=== PATIENT | male | born 1955 | race African-American/Black ===

== ENCOUNTER → 2016-10-27 | Outpatient (CLI) | payer OTHER ==
--- NOTE | 2016-10-27 12:07 | P.PN ---
Progress Note - Text Patient returns for followup for chronic back and hip pain without significant radiation to lower extremities and tailbone pain; patient recently underwent total hip arthroplasty on the left side; patient got Morris 10/[address] Sweeney and says it is helping significantly with postoperative pain. Patient has undergone many types of spinal injections in the past including RFA, SIJ injections, and LESIs, none of which have provided more than 2-3 weeks' relief apiece. Patient continues on Percocet and Neurontin medications for pain with good relief, but still continues to complain of coccygeal pain. Patient denies adverse drug effects from medications. Today, pt denies new-onset weakness, bowel/bladder incontinence, or any other signs or symptoms of cauda equina syndrome. There are no signs of acute intoxication, and no indications of medication diversion or overuse. In addition to above, 13-point review of systems is also negative for chest pain , shortness of breath, changes in vision, changes in hearing, new onset weakness , abdominal pain, diarrhea, extreme fatigue, malaise, fever, skin changes, homicidal or suicidal ideation, or bowel or bladder incontinence. Vital Signs: Reviewed in EMR Gen: WDWN, AAOx3, NAD HEENT: NCAT, EOMI, hearing grossly normal Pulm: resp unlabored Abd: soft, NT, ND Neck: supple, trachea midline ROM in flexion lumbar spine: reduced ROM in extension lumbar spine: reduced Lumbar paravertebral tenderness: ++, worst over coccygeal area Facet loading: ++ SI joint tenderness: +bilateral David's test: + bilateral Straight leg raise: neg Tender to deep palpation over coccyx, worst right side Well-healing scar left hip, C/D/I Neuro: CN II-XII grossly intact, muscle strength lower extremities PRESERVED Imaging: Reviewed in EMR Assessment: 1. coccygodynia 2. lumbar spondylosis without myelopathy 3. chronic pain syndrome Plan: 1. Explanation: Opioid and psychological risk scores were reviewed. Diagnoses , prognoses, and multiple treatment options including but not limited to physical therapy, interventional therapies, adjuvant medical therapies, narcotic medication therapies, and surgery were discussed with the patient and all questions were answered to the patient's satisfaction. 2. Opioid agreement: Patient has previously signed narcotic agreement, and was orally counseled to not overuse, abuse, divert, or cell medications, and to take them as prescribed by only 1 healthcare provider. The patient was also counseled to store opioid medications in a safe and preferably locked location. Patient was also counseled against driving while using narcotic medications and also to not use alcohol or any illicit or recreational drugs. The patient verbalized understanding that lack of compliance with any of the above and likely result in failure to renew narcotic prescriptions, possible discharge from the clinic, and possible legal ramifications thereafter if indicated. 3. Counseling: The patient was counseled extensively on BODY MASS INDEX, EXERCISE. Specifically, the patient was instructed regarding the importance of smoking cessation, obesity, and exercise in the context of both chronic pain and overall health. 4. Procedures: patient wants ganglion of impar block, will discuss at next visit 5. Consultations: None 6. Investigations: UDS today 7. Medications: Morris 10/325 #120 x 2 months (changed from Percocet 5/325 #240) , Neurontin x 2 months 8. Disposition: f/u for re-eval 8 weeks PQRS measures: 1-Patient's medications are documented in the chart. 2-Tobacco use is negative, counseling NOT given 3-Patient has not had a pneumococcal vaccine. 4-Advanced care planning discussed, patient unable to give. 5-Opioid contract signed with the patient. 6-Pain positive, follow-up visit or procedure scheduled 7-Patient's blood pressure measured and documented, and within normal limits. 8-Patient's weight was measured, and body mass index ABOVE the normal limits, and counseling was done. Patient instructed to follow up with PCP. 9-Patient WAS NOT identified as an unhealthy alcohol user.
[2016-10-27 12:10] VITALS: BP 114/74; PULSE 86; RESP 16; TEMP 98
== END | disposition home or self-care (01) ==
LOC: PNWHC3 11:09
PROVIDERS: ATTEND Anesthesiology
DX: M53.3 Sacrococcygeal disorders, not elsewhere classified (principal); M47.816 Spondylosis without myelopathy or radiculopathy, lumbar region; G89.4 Chronic pain syndrome; Z98.890 Other specified postprocedural states; Z79.891 Long term (current) use of opiate analgesic
CPT/HCPCS: 80307 ×2; G0480; G0463; 80364; 99211

== ENCOUNTER → 2016-12-22 | Outpatient (CLI) | payer OTHER ==
[2016-12-22 12:06] VITALS: BP 153/92; PULSE 75; RESP 16; TEMP 98
--- NOTE | 2016-12-22 12:40 | P.PN ---
Progress Note - Text This is a 61-year-old male with history of coccydynia and recent left total hip replacement. The patient states that his tailbone pain starts after he sits down for half an hour to 45 minutes and becomes excruciating with no radiation to the lower extremities. Palpation used to be on Percocet 5 mg and he was taken 8 pills of that every day before his hip surgery. The patient was switched to [place] for postop pain but he states that [place] gives him too many side effects including severe constipation and memory problems. The patient requested to switch him back to Percocet. He is alert oriented 3 in no apparent distress he uses cane for ambulation he denies any suicidal thoughts. The patient understands the risk of being on opioids and for that I'm going to switch him back to Percocet but at much lower dose I will give him Percocet 5 mg up to 5 pills a day for now and hopefully can wean him further down in the future. I will schedule him to have ganglion impar block under fluoroscopic guidance in hope that if it does help him week and then we can further down on the Percocet. We will see the patient back in 4 weeks from now for reevaluation.
== END ==
LOC: PNWHC3 11:46
PROVIDERS: ATTEND Anesthesiology
DX: M53.3 Sacrococcygeal disorders, not elsewhere classified (principal); Z96.642 Presence of left artificial hip joint; Z79.891 Long term (current) use of opiate analgesic
CPT/HCPCS: 99211

== ENCOUNTER 2017-01-20 07:14 | Day surgery (SDC) | payer OTHER ==
[2017-01-15 16:10] VITALS: BMI 33.2
[2017-01-20 07:39] VITALS: RESP 16; TEMP 97.3
[2017-01-20] MEDS ORDERED: LIDOCAINE 1% 20 ML VIAL (10MG/ML) FOR IV START INTRADERMA ONE (07:44)
[2017-01-20] MEDS ORDERED: LACTATED RINGERS 1,000 ML IV SCH (07:45)
[2017-01-20] MEDS ORDERED: BUPIVACAINE (PF) 0.5% 30 ML VIAL ONE (08:15)
[2017-01-20] MEDS ORDERED: IOHEXOL 180 MG/ML 1 ML ML ONE (08:15)
[2017-01-20] MEDS ORDERED: MIDAZOLAM 2 MG/2 ML VIAL ONE (08:15)
[2017-01-20] MEDS ORDERED: TRIAMCINOLONE ACETONIDE 40 MG/ML 1 ML VIAL ONE (08:15)
[2017-01-20] MEDS ORDERED: fentaNYL (PF) 50 MCG/ML 2 ML AMP ONE (08:15)
[2017-01-20] MEDS ORDERED: IV FLUID CONTINUATION 1,000 ML IV ONE (08:47)
--- NOTE | 2017-01-20 08:52 | FL ---
EXAMINATION TYPE: FL guided pain mgmt statistic DATE OF EXAM: 01/20/2017 8:46 AM HISTORY: Flouroscopy time 51 seconds of fluoroscopy provided. IMPRESSION: 1. Fluoroscopy time.
[2017-01-20 09:05] VITALS: BP 134/83; PULSE 56
--- NOTE | 2017-01-20 09:25 | P.PCN ---
Date of Procedure: 01/20/17 Preoperative Diagnosis: Postoperative Diagnosis: Procedure(s) Performed: Implants: Surgeon: Marquez Lawson Pathology: none sent Condition: stable Disposition: PACU Indications for Procedure: Operative Findings: Description of Procedure: PREOP DIAGNOSIS: Coccydynia POSTOP DIAGNOSIS: same PROCEDURE: Ganglion impar block. ANESTHESIA: Local with 1% lidocaine; IV sedation with Versed and fentanyl. EBL: None. PROCEDURE INDICATION: The patient with coccydynia that has been unresponsive to more conservative measures. Patient does not use any blood thinners. PROCEDURE DESCRIPTION: The patient was seen and identified in the preoperative area. Risks, benefits, complications, and alternatives were discussed with the patient (including but not limited to incomplete pain relief, bleeding, infection, nerve damage, and allergies to medications), the patient agreed to proceed with the procedure and signed the consent after all questions were answered. Patient was taken to the OR and time out was completed to verify proper patient , position, laterality of pain, and allergies. Pt was placed in the prone position. IV was started. Vital signs remained stable throughout the procedure. Using crosstable lateral view, the sacrococcygeal joint was identified and localized with 1% lidocaine. A 22-gauge 3-1/2 inch spinal needle was inserted through the sacrococcygeal ligament and advanced to the anterior aspect of the joint guided by juanis-posterior and lateral fluoroscopy. Correct needle position was verified by injecting 2 ml of water soluble dye, Omnipaque 300, and observing a spread along the anterior side of the sacro-coccygeal ligament. After negative aspiration of CSF, blood, and no paresthesias, 10 mL of block solution containing 8 mL of 0.5%preservative-free bupivacaine and Kenalog 80 mg was injected. Needle was withdrawn intact. Skin was cleansed and bandages were applied. COMPLICATIONS: None. COMMENTS: DISPOSITION / PLANS: The patient was placed in a supine position and transferred to the recovery area in a stable condition for observation. Patient was discharged from the recovery room after meeting discharge criteria. Discharge instructions given to the patient by the staff. The patient was reexamined prior to discharge and there were no issues. The patient will schedule a repeat injection in 4-6 weeks.
== END 2017-01-20 09:37 | disposition home or self-care (01) ==
LOC: ORPAIN 07:14
PROVIDERS: ATTEND Anesthesiology
DX: M53.3 Sacrococcygeal disorders, not elsewhere classified (principal); Z79.891 Long term (current) use of opiate analgesic
CPT/HCPCS: 99152; 77002; 20605; J2250; J3301; Q9965; J3010; 64999

== ENCOUNTER 2017-02-16 09:53 | Day surgery (SDC) | payer OTHER ==
[2017-02-12 15:31] VITALS: BMI 33.2
[~2017-02-16 09:53] MED LIST: LACTATED RINGERS 1,000 ML IV SCH
[2017-02-16 10:14] VITALS: RESP 18; TEMP 98.1
[2017-02-16] MEDS ORDERED: LIDOCAINE 1% 20 ML VIAL (10MG/ML) FOR IV START INTRADERMA ONE (10:20)
[2017-02-16] MEDS ORDERED: fentaNYL (PF) 50 MCG/ML 2 ML AMP ONE (10:20)
[2017-02-16] MEDS ORDERED: DEXAMETHASONE SOD PHOS (MDV) 100 MG/10 ML VIAL ONE (10:20)
[2017-02-16] MEDS ORDERED: MIDAZOLAM 2 MG/2 ML VIAL ONE (10:20)
[2017-02-16] MEDS ORDERED: IOHEXOL 180 MG/ML 1 ML ML ONE (10:20)
[2017-02-16] MEDS ORDERED: BUPIVACAINE (PF) 0.5% 30 ML VIAL ONE (10:20)
[2017-02-16] MEDS ORDERED: IV FLUID CONTINUATION 1,000 ML IV ONE (10:49)
--- NOTE | 2017-02-16 10:53 | P.PCN ---
Date of Procedure: 02/16/17 Preoperative Diagnosis: Postoperative Diagnosis: Procedure(s) Performed: PREOPERATIVE DIAGNOSIS : 1-coccygodynia POSTOPERATIVE DIAGNOSIS: 1-coccygodynia PROCEDURE: Diagnostic= ganglion impar block under fluoroscopy guidance ANESTHESIA: Local with 1% lidocaine 3 ml ; IV sedation with Versed 3 mg and Fentanyl 150 mcg. EBL: Minimal COMPLICATION: None. IV FLUIDS: 100 mL of normal saline. 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 PROCEDURE DESCRIPTION: the patient was seen and identified in the preop holding area , risks and benefits and possible complications of the procedure and alternative were discussed with the patient, and the patient agreed to proceed with the procedure and signed the consent IV was started and vital signs monitored during the procedure and fluoroscopy was used to maximize the benefit and accuracy of the needle placement, and sedation was given to decrease patient anxiety, patient was taken to the procedure room and placed in prone position vital signs monitored in the back prepped with chlorhexidine X3 then under strict sterile technique using the lateral view , after local infiltration of skin and subcu tissuies with lidocaine 1% 3 mL , then 22-gauge Quincke-type needles , inserted through the sacrococcygeal ligament and advanced to the anterior aspect of the sacrococcygeal joint , the correct needle position was confirmd with injection of Omnipaque 180 mg per ml ,3 ml injected after negative aspiration , 8 showed no intravascular spread down the spread was anterior to the sacrococcygeal ligament , and after negative aspiration for heme and CSF and there was no paresthesia 8 mL of Marcaine 0.5% mixed with 20 mg of dexamethasone , At the end of the procedure and the needle removed and a bandage applied after the skin was cleaned the cleaning solution patient taken to recovery room in stable condition and monitors in the recovery room for 20-30 minutes and discharged home in stable condition after discharge criteria met and patient will follow up with the pain clinic in 2-4 weeks Implants: Indications for Procedure: Operative Findings: Description of Procedure:
--- NOTE | 2017-02-16 10:56 | FL ---
Fluoroscopy HISTORY: Pain 18 seconds fluoroscopy time supplied to the referring clinician. 2 intraoperative C-arm images docum ent the procedure. See dictated report from anesthesia.
[2017-02-16 11:06] VITALS: BP 106/59; PULSE 60
== END 2017-02-16 11:31 | disposition home or self-care (01) ==
LOC: ORPAIN 09:53
PROVIDERS: ATTEND Specialist
DX: G89.29 Other chronic pain (principal); M46.96 Unspecified inflammatory spondylopathy, lumbar region
CPT/HCPCS: 64999; J2250; Q9965; J3010; J1100

== ENCOUNTER → 2017-04-13 | Outpatient (CLI) | payer OTHER ==
[2017-04-13 12:19] VITALS: BP 126/81; PULSE 84; RESP 20; TEMP 98.1
--- NOTE | 2017-04-13 12:34 | P.PN ---
Progress Note - Text This is a 61-year-old gentleman with history of lower back pain due to lumbar spondylosis. He also had severe coccygeal pain last time I saw him and he had to ganglion impar injection since then which helped him significantly and right now he does not complain of any pain around the coccyx area. The patient still takes Percocet 5 mg 5 times a day for his lower back pain. He does not show any drug-seeking behavior. He does not look oversedated. He denies any suicidal or homicidal thoughts. At this time I will do the patient prescription for Percocet for 2 months and we 'll see him then for reevaluation. Of note the patient takes diclofenac at home once a day from his primary care physician.
== END ==
LOC: PNWHC3 11:54
PROVIDERS: ATTEND Anesthesiology
DX: M54.5 Low back pain (principal)
CPT/HCPCS: 99211

== ENCOUNTER → 2017-06-08 | Outpatient (CLI) | payer OTHER ==
[2017-06-08 14:26] VITALS: BP 131/81; PULSE 61; RESP 18; TEMP 98.3
--- NOTE | 2017-06-08 14:50 | P.PN ---
Progress Note - Text Progress Note Date: 06/08/17 his is a 61-year-old gentleman with history of lower back pain due to lumbar spondylosis. He also had severe coccygeal pain that responded favorably to ganglion impar injection . The patient still takes Percocet 5 mg 5 times a day for his lower back pain. He does not show any drug-seeking behavior. He does not look oversedated. He denies any suicidal or homicidal thoughts. The patient asked me to increase his dose of Percocet since he used to take 240 pills per month however I told him we'll going to add naproxen 250 mg once a day as needed for pain instead of going up on the Percocet. The patient does have history of hypertension and we'll have to watch his blood pressure if it is getting worse we might need to stop using naproxen. At this time I will write a prescription for Percocet for 1 month and I will schedule him to have ganglion impar injection as soon as possible for his coccyx pain. Of note the patient stopped using diclofenac that he used to get from his primary care physician.
== END ==
LOC: PNWHC3 13:49
PROVIDERS: ATTEND Anesthesiology
DX: M47.816 Spondylosis without myelopathy or radiculopathy, lumbar region (principal); Z79.899 Other long term (current) drug therapy
CPT/HCPCS: 99211

== ENCOUNTER → 2017-07-28 | Outpatient (CLI) | payer OTHER ==
[2017-07-28 14:01] VITALS: BP 176/78; PULSE 72; TEMP 98.8
--- NOTE | 2017-07-28 14:42 | P.PN ---
Progress Note - Text Progress Note Date: 07/28/17 Patient returns for followup for chronic back and hip pain without significant radiation to lower extremities and tailbone pain. Patient underwent ganglion of impar block with improvement of pain from 7/10 down to 2/10 but with numbness in his penis and testicles for 1-2 days that did resolve. Patient continues on Percocet and Neurontin medications for pain with some relief, but still continues to complain of coccygeal pain. Patient denies adverse drug effects from medications. Today, pt denies new-onset weakness, bowel/bladder incontinence, or any other signs or symptoms of cauda equina syndrome. There are no signs of acute intoxication, and no indications of medication diversion or overuse. In addition to above, 13-point review of systems is also negative for chest pain , shortness of breath, changes in vision, changes in hearing, new onset weakness , abdominal pain, diarrhea, extreme fatigue, malaise, fever, skin changes, homicidal or suicidal ideation, or bowel or bladder incontinence. Vital Signs: Reviewed in EMR Gen: WDWN, AAOx3, NAD HEENT: NCAT, EOMI, hearing grossly normal Pulm: resp unlabored Abd: soft, NT, ND Neck: supple, trachea midline ROM in flexion lumbar spine: reduced ROM in extension lumbar spine: reduced Lumbar paravertebral tenderness: ++, worst over coccygeal area Facet loading: ++ SI joint tenderness: + bilateral David's test: + bilateral Straight leg raise: neg Tender to deep palpation over coccyx, worst right side Well-healing scar left hip, C/D/I Neuro: CN II-XII grossly intact, muscle strength lower extremities PRESERVED Imaging: Reviewed in EMR Assessment: 1. coccygodynia 2. lumbar spondylosis without myelopathy 3. chronic pain syndrome Plan: 1. Explanation: Opioid and psychological risk scores were reviewed. Diagnoses , prognoses, and multiple treatment options including but not limited to physical therapy, interventional therapies, adjuvant medical therapies, narcotic medication therapies, and surgery were discussed with the patient and all questions were answered to the patient's satisfaction. 2. Opioid agreement: Patient has previously signed narcotic agreement, and was orally counseled to not overuse, abuse, divert, or cell medications, and to take them as prescribed by only 1 healthcare provider. The patient was also counseled to store opioid medications in a safe and preferably locked location. Patient was also counseled against driving while using narcotic medications and also to not use alcohol or any illicit or recreational drugs. The patient verbalized understanding that lack of compliance with any of the above and likely result in failure to renew narcotic prescriptions, possible discharge from the clinic, and possible legal ramifications thereafter if indicated. 3. Counseling: The patient was counseled extensively on BODY MASS INDEX, EXERCISE. Specifically, the patient was instructed regarding the importance of smoking cessation, obesity, and exercise in the context of both chronic pain and overall health. 4. Procedures: patient wants to repeat ganglion of impar block in 2018, consider using particulate steroid at that time 5. Consultations: None 6. Investigations: UDS today 7. Medications: Percocet 5/325 #150 with one refill, Naproxen 250 mg #60 with one refill 8. Disposition: f/u for re-eval 8 weeks. Will discuss repeating ganglion of impar block at that time and will also consider changing patient to oxycodone 10 mg #90 (without any acetaminophen, which is more likely to be covered by his insurance). PQRS measures: 1-Patient's medications are documented in the chart. 2-Tobacco use is negative, counseling NOT given 3-Patient has not had a pneumococcal vaccine. 4-Advanced care planning discussed, patient unable to give. 5-Opioid contract signed with the patient. 6-Pain positive, follow-up visit or procedure scheduled 7-Patient's blood pressure measured and documented, and within normal limits. 8-Patient's weight was measured, and body mass index ABOVE the normal limits, and counseling was done. Patient instructed to follow up with PCP. 9-Patient WAS NOT identified as an unhealthy alcohol user.
== END | disposition home or self-care (01) ==
LOC: PNWHC3 13:42
PROVIDERS: ATTEND Anesthesiology
DX: M47.816 Spondylosis without myelopathy or radiculopathy, lumbar region (principal); M53.3 Sacrococcygeal disorders, not elsewhere classified; G89.4 Chronic pain syndrome; Z79.891 Long term (current) use of opiate analgesic; Z79.899 Other long term (current) drug therapy
CPT/HCPCS: 80307; 80345; 80356; 80364; 99211

== ENCOUNTER → 2017-09-22 | Outpatient (CLI) | payer OTHER ==
[2017-09-22 14:24] VITALS: BP 153/85; PULSE 67; RESP 18
--- NOTE | 2017-09-22 15:03 | P.PN ---
Progress Note - Text Progress Note Date: 09/22/17 Patient returns for followup for chronic back and hip pain without significant radiation to lower extremities and tailbone pain. In 2017, patient underwent ganglion of impar block with improvement of pain from 7/10 down to 2/10 but with numbness in his penis and testicles for 1-2 days that did resolve. Patient continues on Percocet and Neurontin medications for pain with overall decreasing pain relief, but still continues to complain of coccygeal pain. Patient denies adverse drug effects from medications. Today, pt denies new- onset weakness, bowel/bladder incontinence, or any other signs or symptoms of cauda equina syndrome. There are no signs of acute intoxication, and no indications of medication diversion or overuse. In addition to above, 13-point review of systems is also negative for chest pain , shortness of breath, changes in vision, changes in hearing, new onset weakness , abdominal pain, diarrhea, extreme fatigue, malaise, fever, skin changes, homicidal or suicidal ideation, or bowel or bladder incontinence. Vital Signs: Reviewed in EMR Gen: WDWN, AAOx3, NAD HEENT: NCAT, EOMI, hearing grossly normal Pulm: resp unlabored Abd: soft, NT, ND Neck: supple, trachea midline ROM in flexion lumbar spine: reduced ROM in extension lumbar spine: reduced Lumbar paravertebral tenderness: ++, worst over coccygeal area Facet loading: ++ SI joint tenderness: + bilateral David's test: + bilateral Straight leg raise: neg Tender to deep palpation over coccyx, R > L Neuro: CN II-XII grossly intact, muscle strength lower extremities PRESERVED Imaging: Reviewed in EMR Assessment: 1. coccygodynia 2. lumbar spondylosis without myelopathy 3. chronic pain syndrome Plan: 1. Explanation: Opioid and psychological risk scores were reviewed. Diagnoses , prognoses, and multiple treatment options including but not limited to physical therapy, interventional therapies, adjuvant medical therapies, narcotic medication therapies, and surgery were discussed with the patient and all questions were answered to the patient's satisfaction. 2. Opioid agreement: Patient has previously signed narcotic agreement, and was orally counseled to not overuse, abuse, divert, or cell medications, and to take them as prescribed by only 1 healthcare provider. The patient was also counseled to store opioid medications in a safe and preferably locked location. Patient was also counseled against driving while using narcotic medications and also to not use alcohol or any illicit or recreational drugs. The patient verbalized understanding that lack of compliance with any of the above and likely result in failure to renew narcotic prescriptions, possible discharge from the clinic, and possible legal ramifications thereafter if indicated. 3. Counseling: The patient was counseled extensively on BODY MASS INDEX, EXERCISE. Specifically, the patient was instructed regarding the importance of smoking cessation, obesity, and exercise in the context of both chronic pain and overall health. 4. Procedures: patient wants to repeat ganglion of impar block in 2018, consider using particulate steroid at that time 5. Consultations: None 6. Investigations: UDS appropriate from 07/28/17 7. Medications: start oxycodone 10 mg #90 with no refill as patient has had poor pain relief with Percocet 8. Disposition: f/u for re-eval 4 weeks. Will discuss repeating ganglion of impar block at that time as well. PQRS measures: 1-Patient's medications are documented in the chart. 2-Tobacco use is negative, counseling NOT given 3-Patient has not had a pneumococcal vaccine. 4-Advanced care planning discussed, patient unable to give. 5-Opioid contract signed with the patient. 6-Pain positive, follow-up visit or procedure scheduled 7-Patient's blood pressure measured and documented, and within normal limits. 8-Patient's weight was measured, and body mass index ABOVE the normal limits, and counseling was done. Patient instructed to follow up with PCP. 9-Patient WAS NOT identified as an unhealthy alcohol user.
== END | disposition home or self-care (01) ==
LOC: PNWHC3 13:10
PROVIDERS: ATTEND Anesthesiology
DX: G89.4 Chronic pain syndrome (principal); M54.9 Dorsalgia, unspecified; M53.3 Sacrococcygeal disorders, not elsewhere classified; M47.816 Spondylosis without myelopathy or radiculopathy, lumbar region; Z91.19 Patient's noncompliance with other medical treatment and regimen; Z79.891 Long term (current) use of opiate analgesic; Z79.899 Other long term (current) drug therapy
CPT/HCPCS: 99211

== ENCOUNTER → 2017-10-27 | Outpatient (CLI) | payer OTHER ==
[2017-10-27 14:18] VITALS: BP 132/85; PULSE 87; RESP 16
--- NOTE | 2017-10-27 14:41 | P.PN ---
Progress Note - Text Progress Note Date: 10/27/17 Patient returns for followup for chronic back and hip pain without significant radiation to lower extremities and tailbone pain. In 2017, patient underwent ganglion of impar block with improvement of pain from 7/10 down to 2/10 but with numbness in his penis and testicles for 1-2 days that did resolve. Patient continues on oxycodone (started last visit, changed from Percocet) and Neurontin medications for pain with overall decreasing pain relief, and still continues to complain of coccygeal pain. Patient denies adverse drug effects from medications. Today, pt denies new-onset weakness, bowel/bladder incontinence, or any other signs or symptoms of cauda equina syndrome. There are no signs of acute intoxication, and no indications of medication diversion or overuse. In addition to above, 13-point review of systems is also negative for chest pain , shortness of breath, changes in vision, changes in hearing, new onset weakness , abdominal pain, diarrhea, extreme fatigue, malaise, fever, skin changes, homicidal or suicidal ideation, or bowel or bladder incontinence. Vital Signs: Reviewed in EMR Gen: WDWN, AAOx3, NAD HEENT: NCAT, EOMI, hearing grossly normal Pulm: resp unlabored Abd: soft, NT, ND Neck: supple, trachea midline ROM in flexion lumbar spine: reduced ROM in extension lumbar spine: reduced Lumbar paravertebral tenderness: ++, worst over coccygeal area Facet loading: ++ SI joint tenderness: + bilateral David's test: + bilateral Straight leg raise: neg Tender to deep palpation over coccyx, R > L Neuro: CN II-XII grossly intact, muscle strength lower extremities PRESERVED Imaging: Reviewed in EMR Assessment: 1. coccygodynia 2. lumbar spondylosis without myelopathy 3. chronic pain syndrome Plan: 1. Explanation: Opioid and psychological risk scores were reviewed. Diagnoses , prognoses, and multiple treatment options including but not limited to physical therapy, interventional therapies, adjuvant medical therapies, narcotic medication therapies, and surgery were discussed with the patient and all questions were answered to the patient's satisfaction. 2. Opioid agreement: Patient has previously signed narcotic agreement, and was orally counseled to not overuse, abuse, divert, or cell medications, and to take them as prescribed by only 1 healthcare provider. The patient was also counseled to store opioid medications in a safe and preferably locked location. Patient was also counseled against driving while using narcotic medications and also to not use alcohol or any illicit or recreational drugs. The patient verbalized understanding that lack of compliance with any of the above and likely result in failure to renew narcotic prescriptions, possible discharge from the clinic, and possible legal ramifications thereafter if indicated. 3. Counseling: The patient was counseled extensively on BODY MASS INDEX, EXERCISE. Specifically, the patient was instructed regarding the importance of smoking cessation, obesity, and exercise in the context of both chronic pain and overall health. 4. Procedures: ganglion of impar block (with particulate steroid) 5. Consultations: None 6. Investigations: UDS appropriate from 07/28/17 7. Medications: oxycodone 10 mg #90 with one refill (e-prescribed) 8. Disposition: f/u for procedure as scheduled PQRS measures: 1-Patient's medications are documented in the chart. 2-Tobacco use is negative, counseling NOT given 3-Patient has not had a pneumococcal vaccine. 4-Advanced care planning discussed, patient unable to give. 5-Opioid contract signed with the patient. 6-Pain positive, follow-up visit or procedure scheduled 7-Patient's blood pressure measured and documented, and within normal limits. 8-Patient's weight was measured, and body mass index ABOVE the normal limits, and counseling was done. Patient instructed to follow up with PCP. 9-Patient WAS NOT identified as an unhealthy alcohol user.
== END | disposition home or self-care (01) ==
LOC: PNWHC3 13:55
PROVIDERS: ATTEND Anesthesiology
DX: G89.4 Chronic pain syndrome (principal); M47.816 Spondylosis without myelopathy or radiculopathy, lumbar region; M53.3 Sacrococcygeal disorders, not elsewhere classified; Z79.899 Other long term (current) drug therapy
CPT/HCPCS: 99211

== ENCOUNTER 2017-11-24 09:48 | Day surgery (SDC) | payer OTHER ==
[2017-11-24] MEDS ORDERED: LACTATED RINGERS 1,000 ML IV SCH (10:00)
[2017-11-24 10:57] VITALS: RESP 18; TEMP 98.2
[2017-11-24] MEDS ORDERED: LIDOCAINE 1% 20 ML VIAL (10MG/ML) FOR IV START INTRADERMA ONE (11:03)
[2017-11-24] MEDS ORDERED: IOPAMIDOL M200 10 ML VIAL ONE (11:12)
--- NOTE | 2017-11-24 11:29 | P.PCN ---
Date of Procedure: 11/24/17 Surgeon: Marquez Lawson Pathology: none sent Condition: stable Disposition: PACU Description of Procedure: PREOP DIAGNOSIS: Coccydynia POSTOP DIAGNOSIS: same PROCEDURE: Ganglion impar block. ANESTHESIA: Local with 1% lidocaine; IV sedation with Versed and fentanyl. EBL: None. PROCEDURE INDICATION: The patient with coccydynia that has been unresponsive to more conservative measures and has had good relief from ganglion of impar blocks in the past. Patient does not use any blood thinners. PROCEDURE DESCRIPTION: The patient was seen and identified in the preoperative area. Risks, benefits, complications, and alternatives were discussed with the patient (including but not limited to incomplete pain relief, bleeding, infection, nerve damage, and allergies to medications), the patient agreed to proceed with the procedure and signed the consent after all questions were answered. Patient was taken to the OR and time out was completed to verify proper patient , position, laterality of pain, and allergies. Pt was placed in the prone position. IV was started. Vital signs remained stable throughout the procedure. Using crosstable lateral view, the sacrococcygeal joint was identified and localized with 1% lidocaine. A 22-gauge 3-1/2 inch spinal needle was inserted through the sacrococcygeal ligament and advanced to the anterior aspect of the joint guided by juanis-posterior and lateral fluoroscopy. Correct needle position was verified by injecting 2 ml of water soluble dye, Isovue-200, and observing a spread along the anterior side of the sacro-coccygeal ligament. After negative aspiration of CSF, blood, and no paresthesias, 10 mL of block solution containing 8 mL of 0.5% preservative-free bupivacaine and Kenalog 80 mg was injected. Needle was withdrawn intact. Skin was cleansed and bandages were applied. COMPLICATIONS: None. COMMENTS: DISPOSITION / PLANS: The patient was placed in a supine position and transferred to the recovery area in a stable condition for observation. Patient was discharged from the recovery room after meeting discharge criteria. Discharge instructions given to the patient by the staff. The patient was reexamined prior to discharge and there were no issues. The patient will follow up in the clinic in approximately 3-4 weeks.
[2017-11-24] MEDS ORDERED: IV FLUID CONTINUATION 1,000 ML IV ONE (11:36)
[2017-11-24 11:51] VITALS: BP 118/67; PULSE 58
--- NOTE | 2017-11-24 18:38 | FL ---
Fluoroscopy HISTORY: Pain 24 seconds fluoroscopy time supplied to the referring clinician. 3 intraoperative C-arm images docum ent the procedure. See dictated report from anesthesia.
== END 2017-11-24 12:11 | disposition home or self-care (01) ==
LOC: ORPAIN 09:48
PROVIDERS: ATTEND Anesthesiology
DX: G89.4 Chronic pain syndrome (principal); M53.3 Sacrococcygeal disorders, not elsewhere classified; M47.816 Spondylosis without myelopathy or radiculopathy, lumbar region; I10 Essential (primary) hypertension; Z79.891 Long term (current) use of opiate analgesic; Z79.899 Other long term (current) drug therapy
CPT/HCPCS: 64999; J2250; J3301; J3010; Q9966; 99152

== ENCOUNTER → 2017-12-22 | Outpatient (CLI) | payer OTHER ==
[2017-12-22 12:35] VITALS: BP 130/85; PULSE 66; RESP 20
--- NOTE | 2017-12-22 13:02 | P.PN ---
Progress Note - Text Progress Note Date: 12/22/17 Progress Note - Text Progress Note Date: 12/22/2017 Patient returns for followup for chronic back, hip pain, tailbone pain without radiation into the genitals. Patient is status post ganglion impar block one month ago and reports 80% relief. Patient however still has complaints of low- back pain. Patient is status post a left total hip arthroplasty and is recovering well, however still has radiating pain from his low back to his buttock into his left calf. Patient has had multiple epidural injections in the past at other clinics, but cannot recall ever getting a transforaminal epidural injection. I discussed with him the risk benefits of doing an S1 foramen steroid injection, as a therapeutic as well as a diagnostic tool. Patient continues on oxycodone and Neurontin medications for pain with overall decreasing pain relief, and still continues to complain of coccygeal pain. Today VAS is 5 out of 10 with medication. Patient denies adverse drug effects from medications. Today, pt denies new-onset weakness, bowel/bladder incontinence, or any other signs or symptoms of cauda equina syndrome. There are no signs of acute intoxication, and no indications of medication diversion or overuse. I reviewed patient's MRI findings with him this visit, spent 20 minutes discussing diagnosis and potential therapeutic options. I discussed with him the necessity of decreasing narcotic intake, how is likely not a quality surgical candidate given the severity of his low back degenerative disc disease. We discussed interventions, and patient wishes to proceed. In addition to above, 13-point review of systems is also negative for chest pain , shortness of breath, changes in vision, changes in hearing, new onset weakness , abdominal pain, diarrhea, extreme fatigue, malaise, fever, skin changes, homicidal or suicidal ideation, or bowel or bladder incontinence. Vital Signs: Reviewed in EMR Gen: WDWN, AAOx3, NAD HEENT: NCAT, EOMI, hearing grossly normal Pulm: resp unlabored Abd: soft, NT, ND Neck: supple, trachea midline ROM in flexion lumbar spine: reduced ROM in extension lumbar spine: reduced Lumbar paravertebral tenderness: ++ Facet loading: ++ SI joint tenderness: + bilateral David's test: + bilateral Straight leg raise: Positive at 30 left leg with reproducible S1 pain Tender to deep palpation over coccyx, R > L Neuro: CN II-XII grossly intact, muscle strength lower extremities PRESERVED Imaging: Reviewed in EMR Assessment: 1. Coccygodynia 2. Lumbar radiculopathy 3. Lumbar degenerative disc disease 4. lumbar spondylosis without myelopathy 5. chronic pain syndrome 6. Opiate dependency Plan: 1. Explanation: Opioid and psychological risk scores were reviewed. Diagnoses , prognoses, and multiple treatment options including but not limited to physical therapy, interventional therapies, adjuvant medical therapies, narcotic medication therapies, and surgery were discussed with the patient and all questions were answered to the patient's satisfaction. 2. Opioid agreement: Patient has previously signed narcotic agreement, and was orally counseled to not overuse, abuse, divert, or cell medications, and to take them as prescribed by only 1 healthcare provider. The patient was also counseled to store opioid medications in a safe and preferably locked location. Patient was also counseled against driving while using narcotic medications and also to not use alcohol or any illicit or recreational drugs. The patient verbalized understanding that lack of compliance with any of the above and likely result in failure to renew narcotic prescriptions, possible discharge from the clinic, and possible legal ramifications thereafter if indicated. 3. Counseling: The patient was counseled extensively on BODY MASS INDEX, EXERCISE. Specifically, the patient was instructed regarding the importance of smoking cessation, obesity, and exercise in the context of both chronic pain and overall health. 4. Procedures: Left S1 foraminal steroid injection 5. Consultations: None 6. Investigations Will repeat UDS today, maps reviewed and appropriate 7. Medications: oxycodone 10 mg #90 with one refill 8. Disposition: Left S1 foraminal steroid injection in 6 weeks PQRS measures: 1-Patient's medications are documented in the chart. 2-Tobacco use is negative, counseling NOT given 3-Patient has not had a pneumococcal vaccine. 4-Advanced care planning discussed, patient unable to give. 5-Opioid contract signed with the patient. 6-Pain positive, follow-up visit or procedure scheduled 7-Patient's blood pressure measured and documented, and within normal limits. 8-Patient's weight was measured, and body mass index ABOVE the normal limits, and counseling was done. Patient instructed to follow up with PCP. 9-Patient WAS NOT identified as an unhealthy alcohol user.
== END | disposition home or self-care (01) ==
LOC: PNWHC3 11:57
PROVIDERS: ATTEND Anesthesiology
DX: G89.4 Chronic pain syndrome (principal); M53.3 Sacrococcygeal disorders, not elsewhere classified; M51.16 Intervertebral disc disorders with radiculopathy, lumbar region; M47.816 Spondylosis without myelopathy or radiculopathy, lumbar region; F11.20 Opioid dependence, uncomplicated; Z79.899 Other long term (current) drug therapy; Z79.891 Long term (current) use of opiate analgesic
CPT/HCPCS: 80307; 80356; 80364; 99211

== ENCOUNTER 2018-02-02 10:45 | Day surgery (SDC) | payer OTHER ==
[2018-01-27 10:29] VITALS: BMI 33.2
[2018-02-02 11:25] VITALS: TEMP 98.5
[2018-02-02] MEDS ORDERED: LACTATED RINGERS 1,000 ML IV ONE (11:26)
[2018-02-02] MEDS ORDERED: LIDOCAINE 1% 20 ML VIAL (10MG/ML) FOR IV START INTRADERMA ONE (11:27)
[2018-02-02] MEDS ORDERED: IV FLUID CONTINUATION 1,000 ML IV ONE (11:55)
[2018-02-02 12:01] VITALS: RESP 18
[2018-02-02 12:20] VITALS: BP 127/82; PULSE 49
--- NOTE | 2018-02-02 12:20 | FL ---
EXAMINATION TYPE: FL guided pain mgmt statistic DATE OF EXAM: 02/02/2018 HISTORY: Flouroscopy time 13 seconds of fluoroscopy provided. IMPRESSION: 1. Fluoroscopy time.
--- NOTE | 2018-02-03 12:04 | P.PCN ---
Date of Procedure: 02/02/18 Surgeon: Marquez Lawson Pathology: none sent Condition: stable Disposition: PACU Description of Procedure: PREOPERATIVE DIAGNOSIS: 1-Lumbar radiculitis POSTOPERATIVE DIAGNOSIS: 1-Lumbar radiculitis PROCEDURE 1. Transforaminal epidural steroid injection under fluoroscopic guidance at left S1 level. 2. Lumbar epidurogram. ANESTHESIA: Conscious sedation. EBL: Minimal PROCEDURE INDICATION: The patient with low back and leg pain that has been unresponsive to conservative management. No use of blood thinners. PROCEDURE DESCRIPTION / TECHNIQUE: The patient was seen and identified in the preoperative area. Risks, benefits, complications, and alternatives were discussed with the patient, including but not limited to bleeding, infection, nerve damage, allergic reactions to medications, and incomplete pain relief. The patient agreed to proceed with the procedure and signed the consent after all questions were answered. IV was started, and vital signs were stable. Patient was taken to the OR and time out was completed to confirm patient position, procedure, laterality of pain, and allergies. The patient was placed in the prone position on procedure table and a pillow was placed under the abdomen to reduce lumbar lordosis. The lumbosacral area was prepped and draped in the usual sterile fashion. Critical pause was taken. Vital signs were closely monitored during the procedure. Conscious sedation was used during the procedure to decrease patients anxiety. Using oblique fluoroscopy, the sacral foramen at the left S1 level was identified. After localization, a 22-gauge 3.5-inch spinal needle was advanced under a tunneled view fluoroscopic guidance through the foramen. Under lateral fluoroscopy, the needle was then advanced to the posterior border of the interforaminal space. After negative aspiration of CSF and blood and with no paresthesias, 0.5 ml of Isovue-200 contrast dye was injected at each level demonstrating excellent epidurogram and outlining the S1 nerve root. Subsequently, after repeat negative aspiration and confirmation of the epidurogram in the AP view, 3 mL of 3 ml block solution containing 20 mg of dexamethasone and 1 mL of PF 1% lidocaine. At the end of the procedure, needle was removed intact, skin was cleansed, and bandages were applied. COMPLICATIONS: None DISPOSITION / PLANS: The patient was placed in a supine position and transferred to the recovery area in a stable condition for observation. There was no evidence of lower extremity motor or sensory deficit after the procedure. Patient was discharged from the recovery room after meeting discharge criteria. Home discharge instructions were given to the patient by the staff. The patient was reexamined prior to discharge and there were no issues. He will follow-up for re-eval in clinic in 4-6 weeks.
== END 2018-02-02 12:27 | disposition home or self-care (01) ==
LOC: ORPAIN 10:45
PROVIDERS: ATTEND Anesthesiology
DX: M54.16 Radiculopathy, lumbar region (principal); M53.3 Sacrococcygeal disorders, not elsewhere classified; I10 Essential (primary) hypertension; E78.5 Hyperlipidemia, unspecified
CPT/HCPCS: 64483; J2250; J1100; J2001; J3010; Q9966; 99152

== ENCOUNTER → 2018-02-16 | Outpatient (CLI) | payer OTHER ==
[2018-02-16 12:52] VITALS: BP 123/81; PULSE 57; RESP 16
--- NOTE | 2018-02-16 13:15 | P.PN ---
Progress Note - Text Progress Note Date: 02/16/18 Patient returns for followup for chronic back and hip pain without significant radiation to lower extremities and tailbone pain. Patient underwent S1 transforaminal injection with almost no relief and is requesting imaging of lumbar spine today due to worsening weakness and feelings of his LLE giving out. Patient continues on oxycodone (started last visit, changed from Percocet) and Neurontin medications for pain with overall decreasing pain relief, and still continues to complain of coccygeal pain. Patient denies adverse drug effects from medications. Today, pt denies new-onset weakness, bowel/bladder incontinence, or any other signs or symptoms of cauda equina syndrome. There are no signs of acute intoxication, and no indications of medication diversion or overuse. In addition to above, 13-point review of systems is also negative for chest pain , shortness of breath, changes in vision, changes in hearing, new onset weakness , abdominal pain, diarrhea, extreme fatigue, malaise, fever, skin changes, homicidal or suicidal ideation, or bowel or bladder incontinence. Vital Signs: Reviewed in EMR Gen: WDWN, AAOx3, NAD HEENT: NCAT, EOMI, hearing grossly normal Pulm: resp unlabored ROM in flexion lumbar spine: reduced ROM in extension lumbar spine: reduced Lumbar paravertebral tenderness: ++, worst over coccygeal area Facet loading: ++ SI joint tenderness: + bilateral David's test: + bilateral Straight leg raise: +LLE at 10 degrees Imaging: Reviewed in EMR Assessment: 1. coccygodynia 2. lumbar spondylosis without myelopathy 3. chronic pain syndrome Plan: 1. Explanation: Opioid and psychological risk scores were reviewed. Diagnoses , prognoses, and multiple treatment options including but not limited to physical therapy, interventional therapies, adjuvant medical therapies, narcotic medication therapies, and surgery were discussed with the patient and all questions were answered to the patient's satisfaction. 2. Opioid agreement: Patient has previously signed narcotic agreement, and was orally counseled to not overuse, abuse, divert, or cell medications, and to take them as prescribed by only 1 healthcare provider. The patient was also counseled to store opioid medications in a safe and preferably locked location. Patient was also counseled against driving while using narcotic medications and also to not use alcohol or any illicit or recreational drugs. The patient verbalized understanding that lack of compliance with any of the above and likely result in failure to renew narcotic prescriptions, possible discharge from the clinic, and possible legal ramifications thereafter if indicated. 3. Counseling: The patient was counseled extensively on BODY MASS INDEX, EXERCISE. Specifically, the patient was instructed regarding the importance of smoking cessation, obesity, and exercise in the context of both chronic pain and overall health. 4. Procedures: ganglion of impar block (with particulate steroid) 5. Consultations: None 6. Investigations: UDS prev appropriate, MAPS queried and appropriate 7. Medications: oxycodone 10 mg #90 with no refill (e-prescribed); opioid consent signed today 8. MME/day: 45 (unchanged) 8. Disposition: f/u for procedure as scheduled PQRS measures: 1-Patient's medications are documented in the chart. 2-Tobacco use is negative, counseling NOT given 3-Patient has not had a pneumococcal vaccine. 4-Advanced care planning discussed, patient unable to give. 5-Opioid contract signed with the patient. 6-Pain positive, follow-up visit or procedure scheduled 7-Patient's blood pressure measured and documented, and within normal limits. 8-Patient's weight was measured, and body mass index ABOVE the normal limits, and counseling was done. Patient instructed to follow up with PCP. 9-Patient WAS NOT identified as an unhealthy alcohol user.
== END ==
LOC: PNWHC3 12:19
PROVIDERS: ATTEND Anesthesiology
DX: G89.4 Chronic pain syndrome (principal); M47.816 Spondylosis without myelopathy or radiculopathy, lumbar region; M53.3 Sacrococcygeal disorders, not elsewhere classified; Z79.891 Long term (current) use of opiate analgesic; Z79.899 Other long term (current) drug therapy
CPT/HCPCS: 99211

== ENCOUNTER → 2018-02-24 | Outpatient (CLI) | payer OTHER ==
--- NOTE | 2018-02-24 14:14 | CT ---
EXAMINATION TYPE: CT lumbar spine wo con DATE OF EXAM: 02/24/2018 COMPARISON: NONE HISTORY: LLE Weakness, Back pain CT DLP: 1299.90 mGycm CONTRAST: Unenhanced CT of the lumbar spine was performed. Bone and soft tissue window settings are submitted as well as coronal and sagittal reconstructions. L1-L2: Normal disc space height. No disc herniation protrusion or central stenosis. No facet joint arthropathy. No evidence for foraminal encroachment. L2-L3: Normal disc space height. No disc herniation protrusion or central stenosis. No facet joint arthropathy. No evidence for foraminal encroachment. L3-L4: Normal disc space height. No disc herniation protrusion or central stenosis. No facet joint arthropathy. No evidence for foraminal encroachment. L4-L5: Mild disc space narrowing. Posterocentral disc bulge. Mild effacement ventral thecal sac. Mild left lateral recess stenosis and left foraminal encroachment. L5-S1: Severe narrowing at L5-S1 with posterior disc bulge and partial encapsulating spur. Mild effac ement ventral thecal sac. No evidence for central stenosis. No paraspinal masses are identified. Lumbar segments are free if fracture. IMPRESSION: 1. Degenerative disc disease at L4-5 and L5-S1 as discussed.
== END | disposition home or self-care (01) ==
LOC: RADCTMAIN 11:59
PROVIDERS: ATTEND Anesthesiology
DX: M51.36 Other intervertebral disc degeneration, lumbar region (principal); M51.37 Other intervertebral disc degeneration, lumbosacral region
CPT/HCPCS: 72131

== ENCOUNTER → 2018-03-16 | Outpatient (CLI) | payer OTHER ==
[2018-03-16 12:51] VITALS: BP 150/82; PULSE 72; RESP 16
--- NOTE | 2018-03-16 13:12 | P.PN ---
Subjective Progress Note Date: 03/16/18 Principal diagnosis: Lumbar DDD and lumbar spondylosis without myelopathy This is a 62-year-old male with history of severe DDD at the L5-S1 level and pain across his lower back more on the left side than the right side and down his left hamstring muscle. The patient did not respond to the previous S1 nerve root block. He had multiple injections before including sequelae joint injection with RFA and lumbar facet injection with RFA and lumbar epidural steroid injections. He gets very temporary relief of pain after these injections and that's why he has been on oral opioids including oxycodone 10 mg 3 times a day. He denies any bowel or bladder dysfunction or any weakness in the lower extremities. He denies any side effects to oxycodone and he does not show any drug-seeking behavior. Objective - Vital Signs Vital signs: Vital Signs Temp Pulse 72 03/16/18 12:46 Resp 16 03/16/18 12:46 BP 150/82 03/16/18 12:46 Pulse Ox 95 03/16/18 12:46 Intake & Output 03/15/18 03/16/18 03/16/18 18:59 06:59 18:59 Weight 111.13 kg - Constitutional General appearance: Present: obese - EENT Eyes: Present: PERRLA - Respiratory Respiratory: bilateral: CTA - Cardiovascular Heart sounds: normal: S1, S2 - Neurologic Neurologic: Present: CNII-XII intact - Musculoskeletal Musculoskeletal Comment(s): Neuro exam of the lower extremities showed decreased left knee reflex compared to the right side most of the deep tendon reflexes are normal. He has mildly decreased muscle strength in the lower extremities bilaterally to 4 out of 5. Assessment and Plan Plan: This is a 62-year-old male with severe DDD at L5-S1 level and pain across his lower back and in the left hamstring muscles. The patient failed to respond to multiple injections before the last one was left S1 nerve root block. At this point I think he might benefit from getting lumbar medial branch block as diagnostic procedure and we can then proceed with RFA in the block helped his pain however the patient would like to think about this and we will discuss this on his next visit to the clinic. I will give him a refill today of oxycodone #90 pills I will see him back 2 months from now.
== END | disposition home or self-care (01) ==
LOC: PNWHC3 12:28
PROVIDERS: ATTEND Anesthesiology
DX: M51.37 Other intervertebral disc degeneration, lumbosacral region (principal); M47.816 Spondylosis without myelopathy or radiculopathy, lumbar region; Z79.891 Long term (current) use of opiate analgesic
CPT/HCPCS: 99211

== ENCOUNTER → 2018-05-11 | Outpatient (CLI) | payer OTHER ==
[2018-05-11 12:33] VITALS: BP 147/88; PULSE 60; RESP 18
--- NOTE | 2018-05-11 13:04 | P.PN ---
Subjective Progress Note Date: 05/11/18 Principal diagnosis: Severe lumbar degenerative disc disease Coccygodynia The patient still complains of lower back pain but with increasing coccyx pain after 3 months of good relief after the last ganglion impar block. The patient denies any new changes in his symptoms since last time we saw him. He still uses oxycodone 10 mg 3 times a day as needed for pain. He also uses naproxen prescribed by his orthopedic surgeon. We'll this coccyx pain gets worse in the sitting position. Today, pt denies new-onset weakness, bowel/bladder incontinence, or any other signs or symptoms of cauda equina syndrome. There are no signs of acute intoxication, and no indications of medication diversion or overuse. In addition to above, 13-point review of systems is also negative for chest pain , shortness of breath, changes in vision, changes in hearing, new onset weakness , abdominal pain, diarrhea, extreme fatigue, malaise, fever, skin changes, homicidal or suicidal ideation, or bowel or bladder incontinence. Vital Signs: Reviewed in EMR Gen: AAOx3, NAD HEENT: PERRLA,hearing grossly normal Pulm: resp unlabored,CTA Heart:S1,S2, No Mur Neck: supple, trachea midline Postoperative tenderness around the tip of the coccyx Neuro: CN II-XII grossly intact, Imaging: Reviewed in EMR/chart Assessment: Severe lumbar DDD Coccygodynia Plan: 1. Explanation: Opioid and psychological risk scores were reviewed. Diagnoses , prognoses, and multiple treatment options including but not limited to physical therapy, interventional therapies, adjuvant medical therapies, narcotic medication therapies, and surgery were discussed with the patient and all questions were answered to the patient's satisfaction. 2. Opioid agreement: Signed with the patient and the patient is warned not to use opioids while driving or before driving and not to combine opioids with benzodiazepines or alcohol. 3. Counseling: The patient was counseled extensively on SMOKING CESSATION, BODY MASS INDEX, EXERCISE. Specifically, the patient was instructed regarding the importance of smoking cessation, obesity, and exercise in the context of both chronic pain and overall health. 4. Procedures: Schedule for ganglion impar block under fluoroscopic guidance 5. Consultations: None 6. Investigations: None 7. Medications: Continue oxycodone 10 mg 3 times a day when necessary pain 8. Disposition: Present to clinic in 2 months and to the above-mentioned procedures on her 9. Maps were reviewed and were appropriate. Objective - Vital Signs Vital signs: Vital Signs Temp Pulse 60 05/11/18 12:22 Resp 18 05/11/18 12:22 BP 147/88 05/11/18 12:22 Pulse Ox 97 05/11/18 12:22 Intake & Output 05/10/18 05/11/18 05/11/18 18:59 06:59 18:59 Weight 111.13 kg
== END | disposition home or self-care (01) ==
LOC: PNWHC3 12:08
PROVIDERS: ATTEND Anesthesiology
DX: M51.36 Other intervertebral disc degeneration, lumbar region (principal); M53.3 Sacrococcygeal disorders, not elsewhere classified; Z79.1 Long term (current) use of non-steroidal anti-inflammatories (NSAID); Z79.899 Other long term (current) drug therapy
CPT/HCPCS: 99211

== ENCOUNTER → 2018-06-15 | Day surgery (SDC) | payer OTHER ==
[2018-06-15 10:38] VITALS: BP 143/73; RESP 15; TEMP 98.2
--- NOTE | 2018-06-15 11:40 | P.PCN ---
Date of Procedure: 06/15/18 Procedure(s) Performed: PREOP DIAGNOSIS: Coccydynia POSTOP DIAGNOSIS: same PROCEDURE: Ganglion impar block. Under fluoroscopy guidance ANESTHESIA: Local with 1% lidocaine; IV sedation with Versed 2mg and fentanyl. 100 mcg . EBL: None. PROCEDURE INDICATION: The patient with coccydynia that has been unresponsive to more conservative measures and has had good relief from ganglion of impar blocks in the past. Patient does not use any blood thinners. PROCEDURE DESCRIPTION: The patient was seen and identified in the preoperative area. Risks, benefits, complications, and alternatives were discussed with the patient (including but not limited to incomplete pain relief, bleeding, infection, nerve damage, and allergies to medications), the patient agreed to proceed with the procedure and signed the consent after all questions were answered. Patient was taken to the OR and time out was completed to verify proper patient , position, laterality of pain, and allergies. Pt was placed in the prone position. IV was started. Vital signs remained stable throughout the procedure. Using crosstable lateral view, the sacrococcygeal joint was identified and localized with 1% lidocaine. A 22-gauge 3-1/2 inch spinal needle was inserted through the sacrococcygeal ligament and advanced to the anterior aspect of the joint guided by juanis-posterior and lateral fluoroscopy. Correct needle position was verified by injecting 2 ml of water soluble dye, [id number]-[id number], and observing a spread along the anterior side of the sacro-coccygeal ligament. After negative aspiration of CSF, blood, and no paresthesias, 10 mL of block solution containing 8 mL of 0.5% preservative-free Ropivacaine and Kenalog 80 mg was injected. Needle was withdrawn intact. Skin was cleansed and bandages were applied. COMPLICATIONS: none DISPOSITION / PLANS: The patient was placed in a supine position and transferred to the recovery area in a stable condition for observation. Patient was discharged from the recovery room after meeting discharge criteria. Discharge instructions given to the patient by the staff. The patient was reexamined prior to discharge and there were no issues. The patient will follow up in the clinic in approximately 3-4 weeks.
--- NOTE | 2018-06-15 11:52 | FL ---
EXAMINATION TYPE: FL guided pain mgmt statistic DATE OF EXAM: 06/15/2018 HISTORY: Flouroscopy time 18 seconds of fluoroscopy provided. IMPRESSION: 1. Fluoroscopy time.
== END ==
LOC: ORPAIN 10:01
PROVIDERS: ATTEND Specialist
DX: M53.3 Sacrococcygeal disorders, not elsewhere classified (principal)
CPT/HCPCS: 64520; J2250; J3301; J3010; Q9966; 64510; 99152

== ENCOUNTER → 2018-07-06 | Outpatient (CLI) | payer OTHER ==
[2018-07-06 13:11] VITALS: BP 179/93; PULSE 71; RESP 18
--- NOTE | 2018-07-06 15:00 | P.PAINPG ---
Subjective Progress Note Date: 07/06/18 This is a follow-up visit for this 62 years old male with a chronic history of severe low back pain with radiation to the coccyx area, diagnosed with coccydynia and lumbar degenerative disc disease, with done left-sided transforaminal epidural steroid injection at L5-S1 patient had no benefit from it, and also we have done ganglion impar block, he reported that he usually get 3-4 months of relief after each ganglion impar block, but the last ganglion impar block done recently he had minimal benefit from it The patient denies any new changes in his symptoms since last time we saw him. He still uses oxycodone 10 mg 3 times a day as needed for pain. He also uses naproxen prescribed by his orthopedic surgeon. We'll this coccyx pain gets worse in the sitting position. He denies any motor or sensory deficits he denies any change in the movement or urination, and he reported that the pain radiates from the low back to the worse the coccyx area , with occasional radiation towards the posterior aspect of the left thigh Physical Examinations : 1-Constitutiona : Cooperative , not in acute distress . 2-HEENT : nech ; supple , no Lymphadenopathy , normal thyroid size . eyes : no ptosis , no icterus, no photophobia . ENT : normal of hearing , normal oropharynx , no Thrush . 3- Respiratory : Chest clear to auscultations Bilaterally , no wheezing , no Rhonchi . 4- Cardiovascular : regular rate and rhythem , S1 , S2 , no S3 , no S4. 5- Gastrointestinal : abdomen soft no tenderness , bowel sounds , no organomegally . 6- Genitourinary : Defferred . 7- neurologic : Cranial nerve II to XII intact , no focal neurological deffecit . 8-psychatric : alert , oriented X 3 , appropriate affect , intact judgment and insight . 9-Lymphatic : no Lymphadenopathy . 10- musculoskeltal : . Lumber spine moter stegnth lower extremities , thigh and legs 5/5 Right side , 5/5 Left side deep tendon reflexes : normal Knee Jerk , normal ankle Jerk positive lumber facet Loading Test Range of motion of the lumbar spine Flexion 30 degrees, extension 10 degrees strait leg raising test negative bilaterally Fabere test negative bilaterally Sever tenderness over the coccyx area Assessment and plan= chronic low back pain secondary to lumbar degenerative disc disease , coccydynia chronic and current use of high-risk medication (opioids) Patient denies any side effects of the current pain medication and the current treatment/medication helping the patient to do activity of daily living , Diagnoses, prognosis, treatment options, including but not limited to physical therapy, medication management, interventional therapies, and surgery, were discussed with the patient All the questions answered The narcotic consent was signed and patient agreed and understood the side effects and complications of opioid treatment. Patient signed the narcotic agreement, and was orally counseled, not to overuse, not to abuse, not to Divert , not tp sell pain medication, and to take it as prescribed only, Patient was counseled not to drive or operate heavy equipment while using narcotic medication, and advised not to use alcohol or any Illicit drugs while using the narcotis. understanding that lack of compliance with any of the above instructions, will likely to cause discharge from, the pain service, not to renew his narcotic prescriptions MAPS Reviwed and it was apropriate . Medication managements= patient will be given prescription refills for OxyContin codon 10 mg every 8 hours dispense 90 with 1 refill In the future we can consider doing ganglion impar block versus caudal epidural steroid injections , . Objective - Vital Signs Vital signs: Vital Signs Temp Pulse 71 07/06/18 13:03 Resp 18 07/06/18 13:03 BP 179/93 07/06/18 13:03 Pulse Ox 95 07/06/18 13:03 Intake & Output 07/05/18 07/06/18 07/06/18 18:59 06:59 18:59 Weight 111.13 kg PQRS Measure Charge Sheet Measure #130: Documentation of Current Meds in Medical Chart: Patient's medications documented in chart Measure #226: Tobacco Use: Screen & Cessation Intervention: Pt not a tobacco user Measure #111: Pneumonia Vaccination: Pneumococcal vaccine administered or previously received Measure #47: Advance Care Plan: Advance care planning discussed & documented, pt chose/unable to give Measure #412: Opioid Treatment Agreement: Documented signed opioid trtmnt agreemnt min once during opioid trtmnt Measure #408: Opioid Therapy Follow-up Evaluation: Patient had f/u eval minimum every 3 months during opioid therapy Measure #317: Preventitive Care & Scrn High Bld Press & F/U: Normal blood pressure, f/u not required Measure #128: Body Mass Index (BMI) Screening & Follow-up: BMI documented ABOVE normal parameters - f/u documented Measure #131: Pain Assessment & Follow-up: Pain positive & plan documented, Follow-up scheduled Measure #431: Unhealthy Alcohol Use Preventative Care & Scrn: Patient not identified as an unhealthy alcohol user PQRS Narrative: Smoking Status Former smoker Do You Want the Pneumonia Vaccine Up to Date Vaccine AT THIS TIME? Narcotic Agreement Date Signed 10/27/16 Blood Pressure 179/93 Pain Intensity [Left Posterior 7 Thigh] Scale Used Numeric (1 - 10) Hx Alcohol Use (MH) No Home Medications: Ambulatory Orders Lisinopril 40 mg PO QAM 08/07/14 Hydrochlorothiazide 12.5 mg PO QAM 11/29/14 Ranitidine HCl [Zantac] 150 mg PO HS 12/11/14 amLODIPine [Norvasc] 5 mg PO QAM 01/16/15 oxyCODONE HCL 10 mg PO Q8HR PRN 30 Days #90 tab 02/16/18 Controlled Substance Measures - Controlled Substance Measures Is patient prescribed a controlled substance at discharge?: Yes When asked, does pt state using other controlled substances?: No If prescribed controlled substance>3 days was MAPS reviewed?: Yes If Rx opioid, was Start Talking consent form obtained?: Yes If opioid is for acute pain is fill amount 7 days or less?: No Was information provided regarding opioid addiction?: Yes
== END | disposition home or self-care (01) ==
LOC: PNWHC3 12:49
PROVIDERS: ATTEND Specialist
DX: G89.29 Other chronic pain (principal); M54.5 Low back pain; M51.36 Other intervertebral disc degeneration, lumbar region; M53.3 Sacrococcygeal disorders, not elsewhere classified; F11.90 Opioid use, unspecified, uncomplicated; Z79.1 Long term (current) use of non-steroidal anti-inflammatories (NSAID); Z87.891 Personal history of nicotine dependence
CPT/HCPCS: 99211

== ENCOUNTER → 2018-09-01 | Outpatient (CLI) | payer OTHER ==
[2018-09-01 12:38] VITALS: BP 133/80; PULSE 60; RESP 16
--- NOTE | 2018-09-09 12:24 | P.PN ---
Progress Note - Text Progress Note Date: 09/01/18 This is a 62-year-old gentleman with history of lower back pain and coccydynia. The patient states that his coccydynia pain has been getting worse and he does not get consistent results after ganglion impar blocks however his first one gave him significant relief of pain. The patient is willing to repeat the ganglion impar block in hopes that this time it would work better for him. He has a history of total hip replacement. The patient states that Percocet helps improve and oxycodone for his pain. Patient denies any adverse effects to medications. There are no signs of narcotic diversion/misuse/overuse and no new-onset weakness, bowel/bladder incontinence, saddle anesthesia, or other signs or symptoms of cauda equina syndrome. Review of systems is negative for chest pain, shortness of breath, visual changes, dizziness, seizures, fever, nausea/vomiting, suicidal or homicidal ideation, and is positive as indicated in HPI above. Full list of medications, medical history, surgical history, family history, and allergies were reviewed and are documented in the patients electronic record. Physical Exam: Vital Signs: Reviewed in EMR General: Alert and oriented 3 in no apparent distress HEENT: Normocephalic, atraumatic, Neck: supple, trachea midline Pulm: respirations unlabored Positive Tenderness around the tip of the coccyx Neurologic: CN II-XII grossly intact, no focal deficits Laboratory Studies: reviewed in EMR Imaging: reviewed in EMR Impression: Plan: 1. Opioid and psychological risk tools and scores were reviewed. Diagnoses, prognoses, and multiple treatment options including but not limited to physical therapy, interventional therapies, adjunct medical therapies, narcotic medication therapies, and surgery were discussed with the patient and all questions were answered to the patients satisfaction. 2. Opioid agreement: Patient has previously signed narcotic agreement, and was again asked to re-read this document and will be given a copy to take home if requested. This document outlines the policies of the [facility]. It specifically counsels the patient to not misuse, overuse, abuse, divert, or sell medications, and to take them as prescribed by only one healthcare provider and store the medications in a safe and preferably locked location. This document also counsels against driving while using narcotic medications and also against using any alcohol or illicit or recreational drugs in conjunction with opioids. The patient also was reminded of the possible side effects of opioids including constipation, addiction, theoretical risk of increased incidence of malignancies with chronic use of opioids due to possible decreased body immunity. The patient verbalized understanding to nursing staff that lack of compliance with any of the above will likely result in failure to renew narcotic prescriptions, possible discharge from the clinic, and possible legal ramifications thereafter. 3. The patient was counseled extensively on tobacco abuse, body mass index, and exercise and the importance of smoking cessation, weight control, and regular exercise both in the context of chronic pain and also in terms of overall health. 4. Consultations: None 5. Interventional: Schedule for ganglion impar block under fluoroscopic guidance 6. Investigations: UDS appropriate previously, MAPS appropriate 7. Medications: Change oxycodone to Percocet 10 mg 3 times a day if needed for pain 8. Disposition: Return to clinic in 8 weeks and to the above-mentioned procedure as soon as possible
== END | disposition home or self-care (01) ==
LOC: PNWHC3 12:03
PROVIDERS: ATTEND Anesthesiology
DX: M54.5 Low back pain (principal); Z96.642 Presence of left artificial hip joint
CPT/HCPCS: 99211